=== PATIENT | female | born 1985 | race Two or more races ===

== ENCOUNTER 2020-09-16 21:18 | Inpatient (IN) | payer OTHER, SELFPAY ==
[~2020-09-16] VITALS: Ht 152.4 cm; Wt 79.0 kg
[2020-09-16 23:05] LABS: BG BASE EXCESS 0.1 mmol/L (-2.0-2.0); BG CARBOXYHEMOGLOBIN 0.3 % (0.5-1.5); BG DEOXYHEMOGLOBIN 12.3 % (0.0-5.0); BG FRACTION INSPIRED OXYGEN 21; BG HCO3 ACT 23.8 mmol/L (22.0-26.0); BG METHEMOGLOBIN 0.2 % (0.0-1.5); BG OXYGEN SATURATION 87.6 % (92.0-98.5); BG OXYHEMOGLOBIN 87.2 % (94.0-97.0); BG PCO2 35.7 mmHg (35.0-45.0); BG PH 7.442 (7.350-7.450); BG PO2 54.1 mmHg (75.0-100.0); BG SAMPLE SITE RIGHT RADIAL; BG VENT MODE ROOM AIR
[2020-09-16] MEDS ORDERED: AZITHROMYCIN 500 MG in DEXT 5% WATER 250 ML IV ONE (23:30)
[2020-09-16] MEDS ORDERED: CEFTRIAXONE 1 G PREMIX 50 ML IV ONE (23:30)
[2020-09-17] VITALS (7 sets, daily range): BP systolic 101–110; BP diastolic 51–58
[2020-09-17 00:09] LABS: CLARITY URINE CLOUDY (CLEAR); COLOR URINE YELLOW (YELLOW); KETONES URINE 1+ (NEGATIVE); LEUKOCYTE ESTERASE URINE TRACE (NEGATIVE); NITRITE URINE NEGATIVE (NEGATIVE); OCCULT BLOOD URINE 3+ (NEGATIVE); PH URINE 8.5 (4.5-8.0); PROTEIN URINE 1+ (NEGATIVE); SPECIFIC GRAVITY URINE 1.021 (1.005-1.030)
[2020-09-17 00:56] LABS: BASOPHILS % 0.3 % (0.0-2.0); EOSINOPHILS % 0.6 % (0.0-5.0); HEMATOCRIT. 38.9 % (36.0-48.0); HEMOGLOBIN. 13.1 g/dL (12.0-16.0); LYMPHOCYTES % 17.7 % (20.0-50.0); MEAN CORPUSCULAR HEMOGLOBIN 28.3 pg (28.0-32.0); MEAN CORPUSCULAR VOLUME 84.6 fL (81.0-99.0); MEAN PLATELET VOLUME 9.1 fl (7.4-10.4); MONOCYTES % 7.9 % (2.0-8.0); NEUTROPHILS % 73.5 % (40.0-76.0); PLATELET 275 x1000/uL (130-400); RED CELL DISTRIBUTION WIDTH 12.4 % (11.6-14.6)
[2020-09-17 01:09] LABS: CHLORIDE 108 mEq/L (98-107)
[2020-09-17] MEDS ORDERED: GUAIFENESIN-DM 200MG-20MG/10ML UDC PO PRN (06:00)
[2020-09-17] MEDS ORDERED: ALBUTEROL 6.7GM HFA INHALER ORI PRN (06:15)
[2020-09-17] MEDS ORDERED: AZIT250T12 PO (06:22)
[2020-09-17] MEDS ORDERED: [UNRECOGNIZED DRUG - CODE] PO (06:22)
[2020-09-17] MEDS ORDERED: ACET-2708 PO (06:22)
[2020-09-17] MEDS: AZITHROMYCIN 500 MG in DEXT 5% WATER 250 ML IV SCH (08:07)
[2020-09-17] MEDS: DEXAMETHASONE 4MG TABLET PO SCH (08:07)
[2020-09-17] MEDS: CEFTRIAXONE 1,000 MG in DEXTROSE 5% WATER 50 ML IV SCH (08:07)
[2020-09-17] MEDS ORDERED: ENOXAPARIN 30MG/0.3ML SYR SUBCUT SCH (09:00)
[2020-09-17] MEDS: FAMOTIDINE 20MG TABLET PO SCH ×2 (09:24→16:27)
[2020-09-17] MEDS ORDERED: MAGNESIUM/ALUMINUM HYDROXIDE/SIMETHICONE 30ML UDC PO PRN (11:45)
[2020-09-17] MEDS ORDERED: HYDROCODONE/ACETAMINOPHEN 5/325MG TABLET PO PRN (11:45)
[2020-09-17] MEDS ORDERED: ONDANSETRON HCL 4MG/2ML INJ IV PRN (11:45)
[2020-09-17] MEDS ORDERED: CLONIDINE 0.1MG TABLET PO PRN (11:45)
[2020-09-17] MEDS: CHOLECALCIFEROL (D3) 1000 UNIT TABLET PO SCH (15:36)
[2020-09-17] MEDS: ZINC SULFATE 220 MG ( 50 ) CAPSULE PO SCH (15:36)
[2020-09-17] MEDS: ASCORBIC ACID 500 MG TABLET PO SCH (20:01)
[2020-09-18 04:00] VITALS: BP 103/54
[2020-09-18] MEDS: CEFTRIAXONE 1,000 MG in DEXTROSE 5% WATER 50 ML IV SCH (07:56)
[2020-09-18 08:00] VITALS: BP 110/53
[2020-09-18] MEDS: DEXAMETHASONE 4MG TABLET PO SCH (08:00)
[2020-09-18] MEDS: FAMOTIDINE 20MG TABLET PO SCH ×2 (08:00→16:31)
[2020-09-18] MEDS: CHOLECALCIFEROL (D3) 1000 UNIT TABLET PO SCH (08:00)
[2020-09-18] MEDS: AZITHROMYCIN 500 MG in DEXT 5% WATER 250 ML IV SCH (08:00)
[2020-09-18] MEDS: ASCORBIC ACID 500 MG TABLET PO SCH ×2 (08:00→20:09)
[2020-09-18] MEDS: ZINC SULFATE 220 MG ( 50 ) CAPSULE PO SCH (08:00)
[2020-09-18] MEDS: ENOXAPARIN 40MG/0.4ML SYR SUBCUT SCH (08:04)
[2020-09-18 10:18] LABS: BG BASE EXCESS -2.3 mmol/L (-2.0-2.0); BG CARBOXYHEMOGLOBIN 0.3 % (0.5-1.5); BG DEOXYHEMOGLOBIN 2.2 % (0.0-5.0); BG FRACTION INSPIRED OXYGEN 30; BG HCO3 ACT 21.2 mmol/L (22.0-26.0); BG METHEMOGLOBIN 0.3 % (0.0-1.5); BG OXYGEN SATURATION 97.8 % (92.0-98.5); BG OXYHEMOGLOBIN 97.2 % (94.0-97.0); BG PCO2 32.6 mmHg (35.0-45.0); BG PO2 106.9 mmHg (75.0-100.0); BG SAMPLE SITE RIGHT BRACHIAL; BG TOTAL HEMOGLOBIN 13.6 g/dL (12.0-18.0); BG VENT MODE NASAL CANNULA
[2020-09-18 12:00] VITALS: BP 105/56
[2020-09-18 16:00] VITALS: BP 107/58
[2020-09-18 20:00] VITALS: BP 101/54
[2020-09-19] VITALS (7 sets, daily range): BP systolic 89–108; BP diastolic 44–60
[2020-09-19] MEDS: ACETAMINOPHEN 325MG TABLET PO PRN ×2 (01:13→14:27)
[2020-09-19 06:27] LABS: BASOPHILS % 0.3 % (0.0-2.0); EOSINOPHILS % 0.1 % (0.0-5.0); HEMATOCRIT. 39.4 % (36.0-48.0); LYMPHOCYTES % 13.8 % (20.0-50.0); MEAN CORPUSCULAR HEMOGLOBIN 27.7 pg (28.0-32.0); MEAN CORPUSCULAR VOLUME 84.1 fL (81.0-99.0); MEAN PLATELET VOLUME 8.7 fl (7.4-10.4); MONOCYTES % 9.6 % (2.0-8.0); NEUTROPHILS % 76.2 % (40.0-76.0); PLATELET 422 x1000/uL (130-400); RED BLOOD CELL COUNT 4.69 mill/uL (4.2-5.4); RED CELL DISTRIBUTION WIDTH 12.5 % (11.6-14.6)
[2020-09-19 06:37] LABS: CHLORIDE 105 mEq/L (98-107)
[2020-09-19] MEDS: CEFTRIAXONE 1,000 MG in DEXTROSE 5% WATER 50 ML IV SCH (08:06)
[2020-09-19] MEDS: ZINC SULFATE 220 MG ( 50 ) CAPSULE PO SCH (08:06)
[2020-09-19] MEDS: DEXAMETHASONE 4MG TABLET PO SCH (08:06)
[2020-09-19] MEDS: CHOLECALCIFEROL (D3) 1000 UNIT TABLET PO SCH (08:07)
[2020-09-19] MEDS: FAMOTIDINE 20MG TABLET PO SCH ×2 (08:07→16:09)
[2020-09-19] MEDS: ASCORBIC ACID 500 MG TABLET PO SCH (08:07)
[2020-09-19] MEDS: ENOXAPARIN 40MG/0.4ML SYR SUBCUT SCH (08:09)
[2020-09-19] MEDS: AZITHROMYCIN 500 MG in DEXT 5% WATER 250 ML IV SCH (08:57)
[2020-09-19] MEDS ORDERED: AZIT250T12 PO (13:35)
[2020-09-19] MEDS ORDERED: ASCO500T20 PO (13:35)
[2020-09-19] MEDS ORDERED: MED4 MT (13:35)
[2020-09-19] MEDS ORDERED: ALBU6.7H9 ORI (13:35)
[2020-09-19] MEDS ORDERED: CHOL100044 PO (13:35)
[2020-09-19] MEDS ORDERED: ZINC220C2 PO (13:35)
[2020-09-20] MEDS ORDERED: AZITHROMYCIN 500 MG TABLET PO SCH (09:00)
== END 2020-09-19 17:37 | disposition home or self-care (01) | DRG 720 ==
LOC: ER 21:18 → 7EST 09-17 01:03 → ENRESERV 09-17 03:51
PROVIDERS: ADMIT Internal Medicine; ATTEND Internal Medicine
DX: A41.89 Other specified sepsis (principal); U07.1 COVID-19; J96.01 Acute respiratory failure with hypoxia; J12.89 Other viral pneumonia; E87.8 Other disorders of electrolyte and fluid balance, not elsewhere classified; E44.1 Mild protein-calorie malnutrition; R74.01 Elevation of levels of liver transaminase levels; K52.9 Noninfective gastroenteritis and colitis, unspecified; B97.89 Other viral agents as the cause of diseases classified elsewhere; Z79.1 Long term (current) use of non-steroidal anti-inflammatories (NSAID); Z79.899 Other long term (current) drug therapy
CPT/HCPCS: 36415; 36600; 71045; 80048; 80053; 81003; 82375; 82805; 85025; 87635; 93005; 93970; 99285; J0456; J0696; J1650; J7040; J7060; J8540